=== PATIENT | female | born 1970 | race Caucasian/White ===

== ENCOUNTER 2020-09-09 10:16 | Day surgery (SDC) | payer OTHER ==
[2020-09-06 14:53] VITALS: BMI 26.4
[2020-09-09] MEDS ORDERED: KETOROLAC TROMETHAMINE 30 MG/1 ML VIAL IVPUSH PRN (12:36)
[2020-09-09] MEDS ORDERED: ONDANSETRON 4 MG/2 ML VIAL IVPUSH PRN (12:36)
[2020-09-09] MEDS ORDERED: ISOSULFAN BLUE 50 MG/5 ML VIAL SQ ONE (12:38)
[2020-09-09] MEDS ORDERED: LIDOCAINE HCL 1%, 10 MG/ML (20ML VIAL) ONE (12:38)
[2020-09-09] MEDS ORDERED: DEXTROSE 5%-0.45% SALINE 1,000 ML IV SCH (12:45)
[2020-09-09] MEDS ORDERED: MIDAZOLAM HCL 2 MG/2 ML SINGLE DOSE VIAL ONE (12:48)
[2020-09-09] MEDS ORDERED: ceFAZolin SODIUM 1 GM VIAL ONE (12:56)
[2020-09-09] MEDS ORDERED: PROPOFOL 20 ML ONE ×2 (12:56)
[2020-09-09] MEDS ORDERED: DEXAMETHASONE SOD PHOSPHATE 4 MG/1 ML VIAL ONE (12:56)
[2020-09-09] MEDS ORDERED: ONDANSETRON 4 MG/2 ML VIAL ONE (12:56)
[2020-09-09] MEDS ORDERED: SUCCINYLCHOLINE CHLORIDE 200 MG/10 ML SYRINGE ONE (12:57)
[2020-09-09] MEDS ORDERED: KETOROLAC TROMETHAMINE 30 MG/1 ML VIAL ONE (13:07)
[2020-09-09] MEDS ORDERED: oxyCODONE HCL 5 MG TABLET PO PRN (13:27)
[2020-09-09] MEDS ORDERED: LACTATED RINGERS SOLUTION 1,000 ML IV SCH (13:30)
[2020-09-09] MEDS ORDERED: ePHEDrine SULFATE 50 MG/1 ML AMPULE ONE (13:30)
[2020-09-09] MEDS ORDERED: EPHEDRINE SULFATE/0.9% NACL/PF 50 MG/10 ML SYRINGE NR ONE (13:30)
[2020-09-09] MEDS ORDERED: BUPIVACAINE HCL/PF 0.25% (2.5MG/ML) 10 ML VIAL IJ ONE (13:55)
[2020-09-09 15:13] VITALS: PULSE 83; TEMP 98.2
[2020-09-09 16:05] VITALS: BP 114/68
== END 2020-09-09 15:35 | disposition home or self-care (01) ==
LOC: FASU 10:16
PROVIDERS: ATTEND Surgery Surgical Oncology
PROC: 0HBT0ZZ Excision of Right Breast, Open Approach (ICD-10-PCS; principal; 2020-09-09 13:14)
DX: D05.01 Lobular carcinoma in situ of right breast (principal); Z80.3 Family history of malignant neoplasm of breast
CPT/HCPCS: 19281; 76098-TC-FY; 88307-TC; 88342-TC; 94760